=== PATIENT | male | born 1995 | race Caucasian/White ===

== ENCOUNTER 2020-05-01 00:22 | Emergency (ER) | payer OTHER ==
[2020-05-01 00:27] VITALS: BP 152/93; PULSE 85; TEMP 98; BMI 28.1
--- OUTSIDE RECORDS SUMMARY | 2020-05-01 00:38 | XMS ---
:1995 [facility] Organization [facility] Support Name Relationship Address Phone UE Unavailable Unavailable Unavailable AIMEE VASQUES MOTHER [address] [phone] [place] [address] Re-disclosure Warning The records that you are about to access may contain information from federally- assisted alcohol or drug abuse programs. If such information is present, then the following federally mandated warning applies: This information has been disclosed to you from records protected by federal confidentiality rules (42 CFR part 2). The federal rules prohibit you from making any further disclosure of this information unless further disclosure is expressly permitted by the written consent of the person to whom it pertains or as otherwise permitted by 42 CFR part 2. A general authorization for the release of medical or other information is NOT sufficient for this purpose. The Federal rules restrict any use of the information to criminally investigate or prosecute any alcohol or drug abuse patient.The records that you are about to access may contain highly sensitive health information, the redisclosure of which is protected by Article 27-F of the [facility] Public Health law. If you continue you may haveaccess to information: Regarding HIV / AIDS; Provided by facilities licensed or operated by the [facility] Office of Mental Health; or Provided by the [facility] Office for People With Developmental Disabilities. If such information is present, then the following [facility] mandated warning applies: This information has been disclosed to you from confidential records which are protected by state law. State law prohibits you from making any further disclosure of this information without the specific written consent of the person to whom it pertains, or as otherwise permitted by law. Any unauthorized further disclosure in violation of state law may result in a fine or snf sentence or both. A general authorization for the release of medical or other information is NOT sufficient authorization for further disclosure. Insurance Providers Payer name Policy type Policy ID Covered Covered constitution party's Policy P autumn / Coverage constitution party ID relationship to [employer] type [employer] MEDICA[employer] [id number]
[2020-05-01] MEDS ORDERED: AMOX TR/POT CLAV 875MG/125MG TABLETS (FP) PO ONE (01:53)
[2020-05-01] MEDS ORDERED: ACETAMINOPHEN 500 MG TABLET (FP) PO ONE (01:53)
[2020-05-01] MEDS ORDERED: DIPHTH,PERTUSS(ACELL),TET 0.5 ML DISP.SYRIN IM ONE ×2 (01:53→02:50)
[2020-05-01] MEDS ORDERED: LIDOCAINE 2.5%/PRILOCAINE 2.5% 30 GRAM TUBE TP ONE (02:21)
--- NOTE | 2020-05-01 02:22 | PDOC ---
History of Present Illness - General Chief Complaint: Bite Stated Complaint: LIP LACERATION Time Seen by Provider: 05/01/20 01:44 History Source: Patient Exam Limitations: No Limitations - History of Present Illness Initial Comments: 05/01/20 02:21 24M o/w healthy presenting after being bitten by pet cat on the lip. Cat is up to date on vaccines. Patient does not know last tetanus. Denies f/c, difficulty breathing or swallowing, numbness of the face. no other complaints. Past History - Medical History Allergies/Adverse Reactions: Allergies Allergy/AdvReac Type Severity Reaction Status Date / Time No Known Allergies Allergy Verified 05/01/20 00:27 Home Medications: Ambulatory Orders Amoxicillin/Potassium Clav [Augmentin 875-125 Tablet] 1 each PO BID #14 tablet 05/01/20 COPD: No - Immunization History Immunization Up to Date: No - Psycho-Social/Smoking History Smoking History: Never smoked - Substance Abuse Hx (Audit-C & DAST Scrn) How often the patient has a drink containing alcohol: 2-4 times / month Score: In Men: 4 or > Positive; In Women: 3 or > Positive: 2 Screen Result (Pos requires Nsg. Audit-10AR): Negative Review of Systems - Review of Systems Comments:: 05/01/20 08:40 CONSTITUTIONAL: Denies F / C HEENT: + laceration 2/2 cat bite Denies headache, lightheadedness, dizziness, changes in vision / hearing, diplopia, blurry vision, sore throat, rhinorrhea RESP: Denies SOB, cough, orthopnea, [place] CARD: Denies chest pain, palpitations GI: Denies N / V / D, abdominal pain, bloody stool, inability to tolerate PO : Denies dysuria, hematuria, frequency NEURO: Denies numbness, tingling, weakness MSK: Denies back pain SKIN: Denies rashes *Physical Exam - Vital Signs Last Vital Signs Temp Pulse Resp BP Pulse Ox 98 F 85 18 152/93 98 05/01/20 00:24 05/01/20 00:24 05/01/20 00:24 05/01/20 00:24 05/01/20 00:24 - Physical Exam 05/01/20 08:40 GEN: Well appearing, NAD, comfortable. AAOx3. HEENT: NC/AT, EOMI, PERRL. 2mm linear laceration to the the medial aspect of the left upper lip crossing the nevaeh border; relatively superficial and does not go through and through. No facial asymmetry. Moist mucous membranes. Normal voice. Supple neck w/ FROM. CV: S1/S2, RRR, no m/r/g LUNG: CTAB, no wheezes, crackles, rales, rhonchi. GI: Soft, ndnt, +BS, no guarding, no rebound. No masses. Neg CVAT b/l. MSK: No obvious deformities of all extremities. SKIN: Warm, dry, no rashes appreciated. PSYCH: Normal mood and affect. NEURO: Moving all extremities well. Procedures - Consent Consent obtained: Verbal, From Patient - Laceration/Wound Repair Left Medial Lip Wound Length: to 2.5 cm Wound Explored: no foreign body present Wound's Depth, Shape: linear Irrigated w/ Saline: Yes Anesthesia: LET Wound Debrided: minimal Wound Repaired With: Sutures Suture Size/Type: 6:0, nylon Number of Sutures: 2 Layer Closure: No Sterile Dressing Applied: No Splint Applied: No Progress: 05/01/20 03:00 approximately 2mm linear laceration to the medial aspect of the left upper lip crossing the nevaeh border. pressure irrigated with 500cc sterile water. Emla gel applied to area 6-0 nylon x2 w/ good approximation. No immediate complications. Patient tolerated well. Medical Decision Making - Medical Decision Making 05/01/20 08:40 24M s/p cat bite to face now with 2mm linear laceration to the upper lip. Highly vascularized area reduces chance of infection but given cat bite will give and send augmentin. update boostrix. pain control. laceration repair - see procedure note; DC home w/ plastics f/u and return precautions Discharge - Discharge Information Problems reviewed: Yes Clinical Impression/Diagnosis: Cat bite of face, Laceration of lip Condition: Stable Disposition: HOME - Admission No - Additional Discharge Information Prescriptions: Amoxicillin/Potassium Clav [Augmentin 875-125 Tablet] 1 each PO BID #14 tablet - Follow up/Referral Referrals: Kaleb Padilla [Primary Care Provider] - - Patient Discharge Instructions Patient Printed Discharge Instructions: DI for Laceration Repair -- Simple, DI for Animal Bites Additional Instructions: Follow up with Plastic Surgery in the next 3 days regarding your laceration. You have two non-absorbable stitches placed; they should come out in 5 days. They can be removed in the Emergency Department, your primary care office, or by the plastic surgeon. We are sending antibiotics to your pharmacy; please pick them up and take as prescribed. We updated your tetanus shot today. Return to the Emergency Department if you experience new or worsening symptoms, including but not limited to: - fevers - severe pain - pus in the affected area - anything that concerns you - Post Discharge Activity
[2020-05-01] MEDS ORDERED: LIDOCAINE 2.5%/PRILOCAINE 2.5% (5 Gram/TUBE) TP ONE ×2 (02:25→02:49)
[2020-05-01] MEDS ORDERED: AMOX TR/POT CLAV 875MG/125MG TABLETS (FP) ONE (02:49)
[2020-05-01] MEDS ORDERED: ACETAMINOPHEN 325 MG TABLET (FP) ONE (02:49)
--- NOTE | 2020-05-02 00:58 | PDOC ---
Documentation entered by Summer Suazo SCRIBE, acting as scribe for Miracle Jarquin MD. Miracle Jarquin MD: This documentation has been prepared by the Gabriele guzman Lincy, SCRIBE, under my direction and personally reviewed by me in its entirety. I confirm that the documentation accurately reflects all work, treatment, procedures, and medical decision making performed by me. Attending Attestation - Resident Resident Name: KrzysztofAndry - ED Attending Attestation I have performed the following: I have examined & evaluated the patient, The case was reviewed & discussed with the resident, I agree w/resident's findings & plan - HPI HPI: 05/01/20 01:58 The patient is a 24 year old male with no reported past medical history who presents to the emergency department s/p a cat bite to the upper lip. - Physicial Exam PE: 05/07/20 01:48 Agree with resident exam - Medical Decision Making 05/07/20 01:49 wound closed, given that lac was through the vermilion border. 2 sutures placed. Pt will be treated with ABX Discharge - Discharge Information Problems reviewed: Yes Clinical Impression/Diagnosis: Cat bite of face, Laceration of lip Condition: Stable Disposition: HOME - Additional Discharge Information Prescriptions: Amoxicillin/Potassium Clav [Augmentin 875-125 Tablet] 1 each PO BID #14 tablet - Follow up/Referral Referrals: Kaleb Padilla [Primary Care Provider] - - Patient Discharge Instructions Patient Printed Discharge Instructions: DI for Laceration Repair -- Simple, DI for Animal Bites Additional Instructions: Follow up with Plastic Surgery in the next 3 days regarding your laceration. You have two non-absorbable stitches placed; they should come out in 5 days. They can be removed in the Emergency Department, your primary care office, or by the plastic surgeon. We are sending antibiotics to your pharmacy; please pick them up and take as prescribed. We updated your tetanus shot today. Return to the Emergency Department if you experience new or worsening symptoms, including but not limited to: - fevers - severe pain - pus in the affected area - anything that concerns you - Post Discharge Activity
== END 2020-05-01 03:37 | disposition home or self-care (01) ==
LOC: JER 00:22
PROC: 0CQ0XZZ Repair Upper Lip, External Approach (ICD-10-PCS; principal; 2020-05-01)
PROC: 3E0234Z Introduction of Serum, Toxoid and Vaccine into Muscle, Percutaneous Approach (ICD-10-PCS; 2020-05-01)
DX: S01.511A Laceration without foreign body of lip, initial encounter (principal)
CPT/HCPCS: 90715; 99284-25

== ENCOUNTER 2023-12-18 22:48 | Emergency (ER) | payer OTHER ==
[2023-12-18 22:53] VITALS: BP 144/80; PULSE 101; RESP 18; TEMP 98.6; BMI 34.9
== END 2023-12-19 01:48 | disposition home or self-care (01) ==
LOC: JER 22:48
DX: G56.21 Lesion of ulnar nerve, right upper limb (principal); R20.2 Paresthesia of skin
CPT/HCPCS: 93005; 93010; 99283-25